=== PATIENT | male | born 1950 | race Hispanic/Latino ===

== ENCOUNTER 2020-12-22 04:51 | Inpatient (IN) | payer OTHER ==
[~2020-12-22] VITALS: Ht 175.3 cm; Wt 99.8 kg
[2020-12-22] VITALS (58 sets, daily range): BP systolic 64–214; BP diastolic 29–87
[2020-12-22 05:58] LABS: BASOPHILS % (AUTO) 0.2 % (0.0-5.0); HEMATOCRIT 27.5 % (42-54); LYMPHOCYTES % (AUTO) 7.1 % (21.0-51.0); MEAN CORPUSCULAR HEMOGLOBIN 29.9 pg (27.0-33.0); MEAN CORPUSCULAR HGB CONC 29.5 g/dL (32.0-36.0); MEAN CORPUSCULAR VOLUME 101.5 fL (79-99); MONOCYTES % (AUTO) 3.9 % (3.0-13.0); NEUTROPHILS % (AUTO) 83.2 % (40.0-77.0); NUCLEATED RED BLOOD CELLS 0.1 % (0.0-0.19); PLATELET COUNT (AUTO) 457 K/uL (130-400); RED BLOOD CELL COUNT(AUTO) 2.71 MIL/uL (4.50-6.20); RED CELL DISTRIBUTION WIDTH 12.8 % (11.0-15.5); WHITE BLOOD COUNT (AUTO) 24.8 K/uL (4.8-10.8)
[2020-12-22] MEDS ORDERED: ZOSYN 3.375GM+NS 50ML 50 ML IV ONE (06:10)
[2020-12-22 06:14] LABS: B-TYPE NATRIURETIC PEPTIDE 13 pg/mL (0-100)
[2020-12-22 06:15] LABS: ABG HCO3 3.6 mmol/L (21.0-28.0); ABG PCO2 45 mmHg (35-48)
[2020-12-22] MEDS ORDERED: PROPOFOL 1000 MG/100 ML 100 ML IV ONE ×2 (06:17→12:07)
[2020-12-22 06:24] LABS: ALBUMIN 1.8 g/dL (3.5-5.0); BILIRUBIN,TOTAL 0.3 mg/dL (0.2-1.0); CREATININE 3.9 mg/dL (0.5-1.5); CRP QUANTITATIVE 26.3 mg/L (0.00-9.0); MAGNESIUM 3.5 mg/dL (1.80-2.40); TOTAL PROTEIN, SERUM 5.3 g/dL (6.0-8.3)
[2020-12-22 06:30] LABS: POTASSIUM 6.9 mmol/L (3.5-5.1)
[2020-12-22] MEDS ORDERED: INSULIN HUMULIN R 100 UNIT/ML 3ML ONE (06:33)
[2020-12-22 07:02] LABS: INR 1.24 (0.85-1.15)
[2020-12-22 07:04] LABS: PARTIAL THROMBOPLASTIN TIME 34.5 SEC (26.3-35.5)
[2020-12-22 07:10] LABS: HEMATOCRIT 21.7 % (42-54)
[2020-12-22 07:22] LABS: APPEARANCE,URINE Cloudy (CLEAR); BILIRUBIN,URINE Negative (NEGATIVE); COLOR,URINE Yellow (YELLOW); GLUCOSE, URINE (UA) >=1000 mg/dL (NEGATIVE); KETONES,URINE Negative (NEGATIVE); LEUKOCYTE ESTERASE ,URINE Moderate (NEGATIVE); NITRATE,URINE Negative (NEGATIVE); OCCULT BLOOD,URINE Small (NEGATIVE); PROTEIN,URINE Negative (NEGATIVE); UROBILINOGEN,URINE 0.2 mg/dL (0.2-1.0)
[2020-12-22] MEDS ORDERED: SODIUM BICARB 50MEQ 50ML VIAL 200 ML ONE (07:32)
[2020-12-22 07:34] LABS: BACTERIA,URINE Moderate /HPF (None Seen); TRICHOMONAS,URINE Few /LPF (None Seen); YEAST,URINE BUDDING None Seen /HPF (None Seen)
[2020-12-22 07:35] LABS: SQUAMOUS EPITHELIAL CELL,UR Moderate /HPF (0-2)
[2020-12-22] MEDS ORDERED: DEXTROSE 5 %-0.45 % NACL 1,000 ML IV PRN ×3 (07:45→10:45)
[2020-12-22] MEDS ORDERED: SODIUM CHLORIDE 0.9% 1000ML 1,000 ML IV SCH ×5 (07:45→10:45)
[2020-12-22] MEDS ORDERED: POTASSIUM CHLORIDE 10MEQ/100ML 100 ML IV PRN ×3 (07:45→10:45)
[2020-12-22] MEDS ORDERED: PHARMACY COMMUNICATION MISC SCH ×2 (07:45→08:15)
[2020-12-22 07:59] LABS: BASOPHILS % (AUTO) 0.2 % (0.0-5.0); EOSINOPHILS % (AUTO) 0.1 % (0.0-8.0); LYMPHOCYTES % (AUTO) 7.7 % (21.0-51.0); MEAN CORPUSCULAR HEMOGLOBIN 29.9 pg (27.0-33.0); MEAN CORPUSCULAR HGB CONC 29.9 g/dL (32.0-36.0); MONOCYTES % (AUTO) 0.5 % (3.0-13.0); NEUTROPHILS % (AUTO) 76.3 % (40.0-77.0); NUCLEATED RED BLOOD CELLS 0.2 % (0.0-0.19); PLATELET COUNT (AUTO) 396 K/uL (130-400); RED BLOOD CELL COUNT(AUTO) 2.21 MIL/uL (4.50-6.20); RED CELL DISTRIBUTION WIDTH 12.6 % (11.0-15.5)
[2020-12-22] MEDS ORDERED: NOREPINEPHRINE 4MG/NS 250ML 250 ML IV ONE ×3 (08:08→15:02)
[2020-12-22 08:10] LABS: ABG BASE EXCESS -21.4 mmol/L (-2.0-3.0); ABG HCO3 9.8 mmol/L (21.0-28.0); ABG OXYGEN SATURATION 95.9 % (95.0-99.0); ABG PCO2 42 mmHg (35-48)
[2020-12-22] MEDS ORDERED: NOREPINEPHRINE 4MG/NS 250ML 250 ML IV SCH (08:15)
[2020-12-22] MEDS: CEFEPIME HCL 2 GM VIAL IVP SCH ×2 (08:15→20:24)
[2020-12-22] MEDS ORDERED: PANTOPRAZOLE SODIUM 80 MG in SODIUM CHLORIDE 0.9% 100 ML IVP SCH (08:15)
[2020-12-22] MEDS: SODIUM CHLORIDE 0.9% 1000ML 1,000 ML IV SCH ×3 (08:15→17:45)
[2020-12-22] MEDS ORDERED: VANCOMYCIN PROTOCOL PER PHARMACY IV SCH (08:15)
[2020-12-22] MEDS ORDERED: PANTOPRAZOLE 40 MG/VIAL ONE (08:19)
[2020-12-22 08:30] LABS: POTASSIUM 6.6 mmol/L (3.5-5.1)
[2020-12-22] MEDS ORDERED: LACTATED RINGERS 1000ML 2,000 ML IV ONE ×2 (08:56→10:10)
[2020-12-22] MEDS ORDERED: PANTOPRAZOLE 40 MG/VIAL IVP SCH (10:23)
[2020-12-22 10:26] LABS: ABG BASE EXCESS -25.6 mmol/L (-2.0-3.0); ABG HCO3 6.5 mmol/L (21.0-28.0); ABG OXYGEN SATURATION 92.9 % (95.0-99.0); ABG PCO2 33 mmHg (35-48)
[2020-12-22] MEDS ORDERED: VANCOMYCIN 1GM+NS 250ML 250 ML IV SCH (10:31)
[2020-12-22] MEDS ORDERED: INSULIN REGULAR, HUMAN 3ML 100 UNIT in SODIUM CHLORIDE 0.9% 99 ML IV SCH ×2 (11:45)
[2020-12-22] MEDS ORDERED: PROPOFOL 1000 MG/100 ML IV PRN ×2 (11:45→12:00)
[2020-12-22] MEDS ORDERED: SODIUM BICARB 50MEQ 50ML VIAL 150 ML ONE (11:59)
[2020-12-22] MEDS ORDERED: INSULIN REGULAR, HUMAN 3ML 100 UNIT in SODIUM CHLORIDE 0.9% 99 ML IV PRN ×2 (12:00)
[2020-12-22 12:19] LABS: CREATININE 4.4 mg/dL (0.5-1.5)
[2020-12-22] MEDS ORDERED: SODIUM BICARB 50MEQ 50ML VIAL IV STA (12:29)
[2020-12-22 12:33] LABS: POTASSIUM 6.8 mmol/L (3.5-5.1)
[2020-12-22] MEDS ORDERED: VANCOMYCIN 750MG + NS 250 ML IV ONE ×2 (13:00)
[2020-12-22] MEDS ORDERED: CALCIUM GLUCONATE 1 GM in SODIUM CHLORIDE 0.9% 100 ML IV SCH ×2 (13:15→13:45)
[2020-12-22] MEDS ORDERED: FENTANYL CITRATE PF 0.05 MG/ML 1,000 MCG in SODIUM CHLORIDE 0.9% 100 ML IVPB SCH (13:30)
[2020-12-22 14:03] LABS: CREATININE 4.3 mg/dL (0.5-1.5)
[2020-12-22 14:10] LABS: POTASSIUM 6.3 mmol/L (3.5-5.1)
[2020-12-22] MEDS ORDERED: FENTANYL 2500MCG+NS 250ML 250 ML IV ONE (14:22)
[2020-12-22] MEDS ORDERED: INSULIN HUMULIN R 100 UNIT/ML 3ML IV SCH (15:05)
[2020-12-22 15:38] LABS: ABG BASE EXCESS -13.7 mmol/L (-2.0-3.0); ABG HCO3 11.6 mmol/L (21.0-28.0); ABG OXYGEN SATURATION 95.2 % (95.0-99.0); ABG PCO2 27 mmHg (35-48)
[2020-12-22] MEDS: NOREPINEPHRINE BITARTRATE 8 MG/NS 250ML IV SCH ×8 (15:52→21:51)
[2020-12-22] MEDS: PROPOFOL 1000 MG/100 ML 100 ML IV SCH ×2 (15:59→22:05)
[2020-12-22] MEDS ORDERED: CEFEPIME HCL 2 GM VIAL IVP SCH (18:15)
[2020-12-22 18:32] LABS: CREATININE 4.4 mg/dL (0.5-1.5); POTASSIUM 4.6 mmol/L (3.5-5.1)
[2020-12-22] MEDS: INSULIN REGULAR, HUMAN 3ML 100 UNIT in SODIUM CHLORIDE 0.9% 99 ML IV PRN ×4 (18:36→21:49)
[2020-12-22 19:02] LABS: ABG BASE EXCESS -10.3 mmol/L (-2.0-3.0); ABG HCO3 14.4 mmol/L (21.0-28.0); ABG PCO2 29 mmHg (35-48)
[2020-12-22] MEDS ORDERED: VASOPRESSIN 20 UNITS in SODIUM CHLORIDE 0.9% 99 ML IV PRN (19:15)
[2020-12-22] MEDS ORDERED: SODIUM CHLORIDE 0.9% 1000ML 1,000 ML IV ONE (19:20)
[2020-12-22 19:22] LABS: HEMATOCRIT 19.5 % (42-54)
[2020-12-22] MEDS ORDERED: ZOSYN 3.375GM+NS 50ML 50 ML IV SCH (21:00)
[2020-12-22] MEDS: SODIUM BICARB 8.4% 50ML SYRING 150 MEQ in DEXTROSE 5%-WATER 1,000 ML IV PRN (21:06)
[2020-12-22 21:44] LABS: ABG BASE EXCESS -5.8 mmol/L (-2.0-3.0); ABG HCO3 18.5 mmol/L (21.0-28.0); ABG OXYGEN SATURATION 94.4 % (95.0-99.0); ABG PCO2 33 mmHg (35-48)
[2020-12-22] MEDS: METRONIDAZOLE 500MG/100ML BAG 100 ML IVPB SCH (21:53)
[2020-12-23] VITALS (85 sets, daily range): BP systolic 65–168; BP diastolic 31–72
[2020-12-23] MEDS: SODIUM CHLORIDE 0.9% 1000ML 1,000 ML IV SCH ×3 (00:25→22:02)
[2020-12-23] MEDS ORDERED: SODIUM CHLORIDE 0.9% 100 ML IV ONE ×2 (00:40→04:21)
[2020-12-23 01:05] LABS: HEMATOCRIT 23.1 % (42-54)
[2020-12-23 01:50] LABS: ABG BASE EXCESS -0.1 mmol/L (-2.0-3.0); ABG HCO3 24.2 mmol/L (21.0-28.0); ABG OXYGEN SATURATION 94.6 % (95.0-99.0); ABG PCO2 39 mmHg (35-48)
[2020-12-23] MEDS: METHYLPREDNISOLONE SOD SUCC 125MG/2ML VIAL IVP SCH ×2 (02:11→10:15)
[2020-12-23 04:54] LABS: BASOPHILS % (AUTO) 0.1 % (0.0-5.0); HEMATOCRIT 23.2 % (42-54); MEAN CORPUSCULAR HEMOGLOBIN 30.6 pg (27.0-33.0); MEAN CORPUSCULAR HGB CONC 36.6 g/dL (32.0-36.0); MEAN CORPUSCULAR VOLUME 83.5 fL (79-99); MONOCYTES % (AUTO) 5.3 % (3.0-13.0); NEUTROPHILS % (AUTO) 87.5 % (40.0-77.0); NUCLEATED RED BLOOD CELLS 0.1 % (0.0-0.19); PLATELET COUNT (AUTO) 253 K/uL (130-400); RED BLOOD CELL COUNT(AUTO) 2.78 MIL/uL (4.50-6.20); RED CELL DISTRIBUTION WIDTH 12.5 % (11.0-15.5); WHITE BLOOD COUNT (AUTO) 26.9 K/uL (4.8-10.8)
[2020-12-23] MEDS ORDERED: NOREPINEPHRINE 4MG/NS 250ML 250 ML IV ONE (05:10)
[2020-12-23] MEDS: METRONIDAZOLE 500MG/100ML BAG 100 ML IVPB SCH ×3 (05:12→22:02)
[2020-12-23] MEDS: SODIUM BICARB 8.4% 50ML SYRING 150 MEQ in DEXTROSE 5%-WATER 1,000 ML IV PRN (05:21)
[2020-12-23 05:28] LABS: ALBUMIN 1.4 g/dL (3.5-5.0); BILIRUBIN,TOTAL 0.5 mg/dL (0.2-1.0); CREATININE 4.2 mg/dL (0.5-1.5); POTASSIUM 3.7 mmol/L (3.5-5.1); TOTAL PROTEIN, SERUM 3.9 g/dL (6.0-8.3)
[2020-12-23] MEDS: PROPOFOL 1000 MG/100 ML 100 ML IV SCH (05:49)
[2020-12-23 07:39] LABS: ABG BASE EXCESS -0.4 mmol/L (-2.0-3.0); ABG HCO3 23.2 mmol/L (21.0-28.0); ABG OXYGEN SATURATION 93.5 % (95.0-99.0); ABG PCO2 35 mmHg (35-48)
[2020-12-23] MEDS: INSULIN REGULAR, HUMAN 3ML 100 UNIT in SODIUM CHLORIDE 0.9% 99 ML IV PRN ×2 (07:55)
[2020-12-23] MEDS ORDERED: FENTANYL 2500MCG+NS 250ML 250 ML IV ONE (07:59)
[2020-12-23] MEDS: CEFEPIME HCL 2 GM VIAL IVP SCH ×2 (08:02→20:42)
[2020-12-23] MEDS ORDERED: MIDAZOLAM 100MG-0.9% NS 100ML 100ML BAG IV PRN (08:30)
[2020-12-23] MEDS: HYDROCORTISONE SOD SUCCINATE 100 MG/2 ML VIAL IV SCH ×3 (09:00→20:45)
[2020-12-23] MEDS: PANTOPRAZOLE 40 MG/VIAL IVP SCH ×2 (09:19→20:44)
[2020-12-23 09:29] LABS: HEMATOCRIT 19.5 % (42-54)
[2020-12-23] MEDS ORDERED: FENTANYL CITRATE PF 0.05 MG/ML 2,500 MCG in SODIUM CHLORIDE 0.9% 200 ML IVPB SCH (09:30)
[2020-12-23 09:37] LABS: CREATININE 3.5 mg/dL (0.5-1.5); POTASSIUM 3.3 mmol/L (3.5-5.1)
[2020-12-23] MEDS ORDERED: MIDAZOLAM 100MG-0.9% NS 100ML 100 ML IV SCH (10:15)
[2020-12-23] MEDS ORDERED: DEXTROSE 10%-WATER 1,000 ML IV ONE (11:26)
[2020-12-23] MEDS ORDERED: DEXTROSE 50%-WATER 50 ML DISP.SYRIN IV ONE (11:29)
[2020-12-23] MEDS: NOREPINEPHRINE BITARTRATE 32 MG in SODIUM CHLORIDE 0.9% 250 ML IV SCH (11:40)
[2020-12-23 12:28] LABS: CREATININE 4.8 mg/dL (0.5-1.5)
[2020-12-23] MEDS ORDERED: INSULIN REGULAR, HUMAN 3ML 100 UNIT in SODIUM CHLORIDE 0.9% 99 ML IV PRN ×2 (12:30)
[2020-12-23] MEDS: VASOPRESSIN 20 UNITS in SODIUM CHLORIDE 0.9% 99 ML IV PRN ×2 (12:34→15:57)
[2020-12-23 15:12] LABS: BASOPHILS % (AUTO) 0.2 % (0.0-5.0); HEMATOCRIT 21.6 % (42-54); LYMPHOCYTES % (AUTO) 4.8 % (21.0-51.0); MEAN CORPUSCULAR HEMOGLOBIN 30.7 pg (27.0-33.0); MEAN CORPUSCULAR HGB CONC 36.1 g/dL (32.0-36.0); MONOCYTES % (AUTO) 5.4 % (3.0-13.0); NEUTROPHILS % (AUTO) 86.5 % (40.0-77.0); NUCLEATED RED BLOOD CELLS 1.2 % (0.0-0.19); PLATELET COUNT (AUTO) 198 K/uL (130-400); RED BLOOD CELL COUNT(AUTO) 2.54 MIL/uL (4.50-6.20); RED CELL DISTRIBUTION WIDTH 12.8 % (11.0-15.5)
[2020-12-23 15:36] LABS: WHITE BLOOD COUNT (AUTO) 33.2 K/uL (4.8-10.8)
[2020-12-23 16:23] LABS: EOSINOPHILS % (MANUAL) 2 % (1-6); LYMPHOCYTES % (MANUAL) 5 % (22-44); MAN.DIFF COMMENT-IMPRESSION MANUAL DIFFERENTIAL; MONOCYTES % (MANUAL) 7 % (2-9); SEGMENTED NEUTROPHILS % 86 % (40-70)
[2020-12-23 20:20] LABS: HEMATOCRIT 22.2 % (42-54)
[2020-12-23 20:39] LABS: POTASSIUM 4.5 mmol/L (3.5-5.1)
[2020-12-23] MEDS: FENTANYL 2500MCG+NS 250ML 250 ML IV SCH (20:43)
[2020-12-24] VITALS (42 sets, daily range): BP systolic 80–164; BP diastolic 42–80
[2020-12-24] MEDS: NOREPINEPHRINE BITARTRATE 32 MG in SODIUM CHLORIDE 0.9% 250 ML IV SCH ×2 (02:19→10:25)
[2020-12-24] MEDS: METRONIDAZOLE 500MG/100ML BAG 100 ML IVPB SCH (05:58)
[2020-12-24 06:04] LABS: BASOPHILS % (AUTO) 0.2 % (0.0-5.0); EOSINOPHILS % (AUTO) 0.1 % (0.0-8.0); HEMATOCRIT 21.9 % (42-54); LYMPHOCYTES % (AUTO) 2.6 % (21.0-51.0); MEAN CORPUSCULAR HEMOGLOBIN 30.8 pg (27.0-33.0); MEAN CORPUSCULAR HGB CONC 35.2 g/dL (32.0-36.0); MEAN CORPUSCULAR VOLUME 87.6 fL (79-99); MONOCYTES % (AUTO) 3.9 % (3.0-13.0); NEUTROPHILS % (AUTO) 90.1 % (40.0-77.0); NUCLEATED RED BLOOD CELLS 1.5 % (0.0-0.19); PLATELET COUNT (AUTO) 207 K/uL (130-400); RED CELL DISTRIBUTION WIDTH 13.2 % (11.0-15.5)
[2020-12-24 06:13] LABS: WHITE BLOOD COUNT (AUTO) 40.7 K/uL (4.8-10.8)
[2020-12-24 06:33] LABS: CREATININE 5.6 mg/dL (0.5-1.5); MAGNESIUM 2.2 mg/dL (1.80-2.40); PHOSPHORUS 5.2 mg/dL (2.5-4.9); POTASSIUM 5.4 mmol/L (3.5-5.1)
[2020-12-24 07:03] LABS: ABG BASE EXCESS -4.1 mmol/L (-2.0-3.0); ABG HCO3 20.7 mmol/L (21.0-28.0); ABG OXYGEN SATURATION 97.5 % (95.0-99.0); ABG PCO2 37 mmHg (35-48)
[2020-12-24] MEDS: SODIUM CHLORIDE 0.9% 1000ML 1,000 ML IV SCH (09:13)
[2020-12-24] MEDS: CEFEPIME HCL 2 GM VIAL IVP SCH (09:13)
[2020-12-24] MEDS: PANTOPRAZOLE 40 MG/VIAL IVP SCH (09:14)
[2020-12-24] MEDS: HYDROCORTISONE SOD SUCCINATE 100 MG/2 ML VIAL IV SCH (09:14)
[2020-12-24] MEDS: FENTANYL 2500MCG+NS 250ML 250 ML IV SCH (10:32)
[2020-12-24] MEDS ORDERED: VANCOMYCIN 1GM+NS 250ML 250 ML IV SCH (13:00)
[2020-12-24] MEDS ORDERED: ACETAMINOPHEN 650 MG SUPPOSITORY RC PRN ×2 (14:30→14:45)
[2020-12-24] MEDS ORDERED: HYDROMORPHONE HCL 2 MG/ML VIAL IVP PRN (14:30)
[2020-12-24] MEDS ORDERED: LORAZEPAM 2 MG/ML 1 ML VIAL IVP PRN (14:30)
[2020-12-24] MEDS ORDERED: ONDANSETRON HCL 4 MG/2 ML VIAL IVP PRN (14:30)
[2020-12-24] MEDS ORDERED: ACETAMINOPHEN 325 MG TAB PO PRN (14:45)
[2020-12-24] MEDS ORDERED: MORPHINE SULFATE 20MG/ML ORAL 0.25 ML PO PRN (14:45)
[2020-12-24] MEDS ORDERED: MORPHINE SULFATE 2 MG/ML 1ML SYG IM PRN (14:45)
== END 2020-12-24 16:24 | disposition expired | DRG 871 ==
LOC: EDH 04:51 → EDHIP 07:31 → 2BH 09:16
PROVIDERS: ADMIT Internal Medicine; ATTEND Internal Medicine
PROC: 30233N1 Transfusion of Nonautologous Red Blood Cells into Peripheral Vein, Percutaneous Approach (ICD-10-PCS; principal; 2020-12-22)
PROC: 5A1945Z Respiratory Ventilation, 24-96 Consecutive Hours (ICD-10-PCS; 2020-12-22)
PROC: 0BH17EZ Insertion of Endotracheal Airway into Trachea, Via Natural or Artificial Opening (ICD-10-PCS; 2020-12-22)
PROC: 05HY33Z Insertion of Infusion Device into Upper Vein, Percutaneous Approach (ICD-10-PCS; 2020-12-22)
PROC: 5A12012 Performance of Cardiac Output, Single, Manual (ICD-10-PCS; 2020-12-22)
DX: A41.9 Sepsis, unspecified organism (principal); E11.10 Type 2 diabetes mellitus with ketoacidosis without coma; U07.1 COVID-19; J96.01 Acute respiratory failure with hypoxia; R65.21 Severe sepsis with septic shock; J12.82 Pneumonia due to coronavirus disease 2019; N17.0 Acute kidney failure with tubular necrosis; N39.0 Urinary tract infection, site not specified; N17.9 Acute kidney failure, unspecified; E87.1 Hypo-osmolality and hyponatremia; D62 Acute posthemorrhagic anemia; E87.2 Acidosis; E87.0 Hyperosmolality and hypernatremia; K92.2 Gastrointestinal hemorrhage, unspecified; Z66 Do not resuscitate; I46.9 Cardiac arrest, cause unspecified; I10 Essential (primary) hypertension; E87.5 Hyperkalemia; E86.0 Dehydration; E86.1 Hypovolemia; E78.5 Hyperlipidemia, unspecified; B96.89 Other specified bacterial agents as the cause of diseases classified elsewhere; E11.649 Type 2 diabetes mellitus with hypoglycemia without coma; E87.6 Hypokalemia; R57.8 Other shock
CPT/HCPCS: 31500; 36415; 36600; 71045; 74018; 80048; 80053; 81001; 82010; 82435; 82803; 82947; 82948; 83605; 83735; 83880; 84100; 84132; 84145; 84295; 84484; 85014; 85018; 85025; 85378; 85610; 85730; 86140; 86850; 86900; 86901; 86923; 87040; 87077; 87088; 87186; 87426; 92950; 93005; 94002; 94003; C1751; C1894; C9113; G0378; J0610; J0692; J1720; J1815; J2543; J2704; J2930; J3010; J3370; J3490; J7030; J7050; J7070; J7120; P9016